=== PATIENT | female | born 1980 | race Caucasian/White ===

== ENCOUNTER 2020-05-20 14:01 | Emergency (ER) | payer BC ==
[~2020-05-20] VITALS: Ht 162.6 cm; Wt 72.6 kg
[2020-05-20 15:08] LABS: ABSOLUTE NEUTROPHILS 8.5 thou/uL (1.4-8.2); BASOPHILS 0.7 % (0.0-2.0); EOSINOPHILS 2.8 % (0.0-3.0); HEMATOCRIT 44.9 % (37.0-47.0); HEMOGLOBIN 14.9 gm/dL (12.0-15.0); LYMPHOCYTES 21.3 % (24.0-44.0); MCH 30.5 pg (26.0-34.0); MCHC 33.2 g/dL (28.0-37.0); MCV 91.9 fL (80.0-100.0); MONOCYTES 5.6 % (1.0-8.0); PLATELET COUNT 321 thou/uL (150-400); POLYS 69.6 % (36.0-66.0); RBC 4.89 mil/uL (4.20-5.00); RDW 13.4 % (10.5-14.5); WBC 12.2 thou/uL (4.0-11.0)
[2020-05-20 15:17] LABS: ANION GAP 7 mmol/L (7-16); BUN 9 mg/dL (7-18); CALCIUM 9.5 mg/dL (8.5-10.1); CHLORIDE 106 mmol/L (98-107); CO2 27 mmol/L (21-32); GLUCOSE 89 mg/dL (74-106); POTASSIUM 4.1 mmol/L (3.5-5.1); SODIUM 140 mmol/L (136-145)
[2020-05-20 15:27] LABS: ALBUMIN 3.8 g/dL (3.4-5.0); SGOT 28 U/L (15-37); SGPT 68 U/L (30-65); TOTAL BILIRUBIN 0.5 mg/dL (0.2-1.0); TOTAL PROTEIN 7.5 g/dL (6.4-8.2); TROPONIN-I <0.06 ng/mL (<0.06)
--- NOTE | 2020-05-20 16:10 | EKG ---
[facility] [place] [address] ELECTROCARDIOGRAM REPORT Name: LOUIS ECHAVARRIA Room #: REG [facility].#: [id number] Admission: 05/20/20 Attend Phys: Discharge: Date of : 82 Report #: [id number] THIS REPORT FOR: cc: FAM - Family physician unknown FAM - Family physician unknown Charli Urias MD [facility] ~ THIS REPORT FOR: //name// [facility] ED Test Date: 2020-05-20 Test Time: 14:12:48 Pat Name: LOUIS ECHAVARRIA Department: Room: Gender: F [employer] Floor Installer: MAHIN : 1980 Requested By: Connor Perdue Order Number: [id number] MD: Charli Urias Measurements Intervals [place] Rate: 69 P: 28 TX: 110 QRS: 69 QRSD: 85 T: 44 QT: 388 QTc: 416 Interpretive Statements Sinus rhythm Borderline short [place] interval Borderline low voltage, extremity leads No previous ECG available for comparison Electronically Signed On 05-20-2020 16:10:49 [employer] by Charli Urias [email or web address] <ELECTRONICALLY SIGNED> By: Charli Urias MD, FAC 05/20/20 1610 1412 11 Charli Urias MD, FAC /EPI
[2020-05-20 18:09] VITALS: BP 99/61
== END 2020-05-20 18:09 | disposition home or self-care (01) ==
LOC: ER 14:01
PROVIDERS: Emergency Medicine
DX: R07.89 Other chest pain (principal); R20.0 Anesthesia of skin; I10 Essential (primary) hypertension; E78.00 Pure hypercholesterolemia, unspecified; Z90.711 Acquired absence of uterus with remaining cervical stump; Z90.49 Acquired absence of other specified parts of digestive tract; Z98.890 Other specified postprocedural states; Z88.1 Allergy status to other antibiotic agents; F17.210 Nicotine dependence, cigarettes, uncomplicated